=== PATIENT | male | born 2000 | race African-American/Black ===

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

== ENCOUNTER 2022-01-20 08:13 | Emergency (ER) | payer OTHER, SELFPAY ==
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
[2022-01-20 08:20] VITALS: BP 127/74; PULSE 60; RESP 16; TEMP 36.7; O2SAT 100
== END 2022-01-20 09:10 | disposition home or self-care (01) ==
PROVIDERS: Emergency Provider Nurse Practitioner Family
DX: H57.13 Ocular pain, bilateral (principal); S63.602A Unspecified sprain of left thumb, initial encounter; X58.XXXA Exposure to other specified factors, initial encounter; Y93.67 Activity, basketball
CPT/HCPCS: 73130; 99213; G0463